=== PATIENT | female | born 1985 | race Caucasian/White ===

== ENCOUNTER → 2020-11-01 09:20 | Outpatient (CLI) | payer BC, SELFPAY ==
[2020-11-01 09:23] LABS: Adenovirus F 40/41, stool Not Detected (NotDetected); Campylobacter Not Detected (NotDetected); Clostridium Difficile A/B, PCR Not Detected (NotDetected); Cryptosporidium Not Detected (NotDetected); Cyclospora Cayetanesis Not Detected (NotDetected); Entamoeba histolytica Not Detected (NotDetected); Enteroaggregative E coli Not Detected (NotDetected); Enteropathogenic E coli Not Detected (NotDetected); Enterotoxigenic E coli Not Detected (NotDetected); Giardia lamblia Not Detected (NotDetected); Norovirus Not Detected (NotDetected); Plesimonas Shigalloides, PCR Not Detected (NotDetected); Rotavirus A Not Detected (NotDetected); Salmonella, PCR Not Detected (NotDetected); Sapovirus Not Detected (NotDetected); Shiga-like toxin E coli Not Detected (NotDetected); Shigella Enterovasive E coli Not Detected (NotDetected); Vibrio Cholerae Not Detected (NotDetected); Vibrio, PCR Not Detected (NotDetected); Yersinia Entercolitica, PCR Not Detected (NotDetected)
[2020-11-01 11:29] LABS: Astrovirus Detected (NotDetected)
== END ==
PROVIDERS: Visit Provider Nurse Practitioner Family
DX: R19.7 Diarrhea, unspecified (principal); A08.32 Astrovirus enteritis
CPT/HCPCS: 87507

== ENCOUNTER → 2022-04-12 07:48 | Outpatient (CLI) | payer BC, SELFPAY ==
--- NOTE | 2022-04-12 07:49 | CA_ITS ---
FINAL REPORT TECHNIQUE: Grayscale, color Doppler and duplex Doppler ultrasound of the kidneys, aorta and renal arteries was performed. Multiple velocities were measured. CLINICAL HISTORY: htn COMPARISON: None FINDINGS: Aorta velocity: 113 cm/sec Right kidney: 11.8 cm. No evidence of hydronephrosis, mass, or stone. Right intrarenal RI: 1.15 Right renal artery velocity: 130 cm/sec. Right RAR (Renal artery-Aortic Ratio): 0.51-0.58 Left Kidney: 12.3 cm. No evidence of hydronephrosis, mass, or stone. Left intrarenal RI: 1.33 Left renal artery velocity: 150 cm/sec. Left RAR (Renal Artery-Aortic Ratio): 0.53-0.57 IMPRESSION: No evidence of significant renal artery stenosis. No evidence of chronic renal disease. CT angiogram or postcontrast MR angiogram would be more sensitive for evaluation of possible renal artery stenosis. Reviewed, Interpreted and Dictated by Irish Brink MD Transcribed by Marii Trujillo Authenticated and [facility]
--- NOTE | 2022-04-12 07:49 | CA_ITS ---
APPROVED REPORT EXAM: Comprehensive 2D, Doppler, and color-flow Echocardiogram Presser Hand: Marlena Rose RVT Ht: 6 ft 1 in Wt: 255lbs BSA: 2.39 BP: 126/84 mmHg Indications: HTN,NEAR SYNCOPE,URI 2D Dimensions LVOT 2.51 cm (M/F) 1.5-2.5 LA Volume 39.00 mL LA Volume Index 16.32 mL/m2 (M/F) 16-34 M-Mode Dimensions RVDd 2.82 cm (0.9-2.6) LA Diam 4.14 cm (1.9-4.0) LVDd 5.74 cm (3.5-5.7) Ao Diam 3.48 cm (2.0-3.7) LVDs 4.47 cm (3.5-5.7) IVSd 0.99 cm (0.6-1.1) PWd 0.87 cm (0.6-1.1) EF (Teich) 44.00% FS 22.10% EDV (Teich) 162.60 mL TAPSE 1.93 (<1.7) ESV (Teich) 91.00 mL LV Diastology E Decel Time 150.00 (160-240 msec) E/A Ratio 0.7 MED E' 5.70 (< 7 cm/sec) E'/MED E' Ratio 10.46 (>14) LAT E' 6.80 (<10 cm/sec) E/LAT E' Ratio 8.76 (>14) Aortic Valve AO Peak GR. 4.00 mmHg Mitral Valve MV E Max Alfonso. 60.00 (40-130 cm/s) MV A Velocity 90.00 (40-130 cm/s) E/A Ratio 0.66 MV Decel. Time 150.00 (160-240 ms) MV PHT 44.00 ms Pulmonary Valve PV Peak Velocity 70.00 (50-150 cm/s) Tricuspid Valve TR P. Velocity 283.00 cm/s RAP Estimate 10.00 mmHg RVSP 42.10 mmHg Left Ventricle Left atrium is mildly enlarged, left ventricle is normal size, estimated ejection fraction is approximately 40 to 45%, left ventricle is globally hypokinetic, grade 1 diastolic dysfunction seen without tissue Doppler evidence of raise left atrial pressure. Right Ventricle Right atrium and right ventricle are mildly enlarged with normal contractility. Aortic Valve Aortic valve is grossly normal there is no aortic stenosis aortic insufficiency. Mitral Valve Mitral valve is grossly normal, there is trace mitral regurgitation. Tricuspid Valve Tricuspid valve grossly normal, there is trace tricuspid regurgitation, tricuspid regurgitation jet velocity is inadequate for calculation of the right ventricular systolic pressure. Pulmonic Valve Pulmonic valve is poorly visualized. Great Vessels Aortic root is normal size. Inferior vena cava is normal size with less than 50% inspiratory collapse. Pericardium No significant pericardial effusion noted. Conclusion 1. Mild biatrial enlargement, normal left ventricular size, estimated ejection fraction 40 to 45% left ventricle is mildly globally hypokinetic. Grade 1 diastolic dysfunction seen without tissue Doppler evidence of raise left atrial pressure. 2. Mildly enlarged right ventricle with normal contractility. 3. Trace mitral and tricuspid regurgitation. 4. No significant pericardial effusion noted. 5. Inferior vena cava is normal size with less than 50% inspiratory collapse. Electronically signed by : Carter Peralta MD 04/13/2022 10:43:00
--- NOTE | 2022-04-12 08:48 | US_ITS ---
FINAL REPORT TECHNIQUE: Ultrasound images of the kidneys were obtained. CLINICAL HISTORY: I16.0 - Hypertensive urgency FINDINGS: US RETROPERITONEAL The right kidney measures 10.5 cm in length. It is normal in echogenicity. There is no hydronephrosis. The left kidney measures 11.6 cm in length. It is normal in echogenicity. There is no hydronephrosis. Incidental note is made of enlarged and fatty infiltrated liver. IMPRESSION: Morphologically normal kidneys. Enlarged fatty liver. Reviewed, Interpreted and Dictated by Irish Brink MD Transcribed by Lisandra Resendiz Authenticated and [facility]
[2022-04-12 09:45] LABS: Basophils # 0.1 K/mm3 (0-0.2); Basophils % 1.1 % (0.1-2.0); Eosinophils # 0.1 K/mm3 (0.0-0.4); Hematocrit 40.4 % (37.0-47.0); Lymphocytes # 1.7 K/mm3 (0.7-4.5); Lymphocytes % 30.9 % (10-50); Mean Corpuscular HGB Conc 32.2 g/dL (31.8-35.4); Mean Corpuscular Hemoglobin 30.5 pg (27.0-31.2); Mean Corpuscular Volume 94.6 fl (81-99); Mean Platelet Volume 7.2 fl (7.4-10.4); Monocytes # 0.4 K/mm3 (0.1-1.0); Monocytes % 7.6 % (1.7-9.3); Neutrophils # 3.3 K/mm3 (1.8-7.8); Neutrophils % 58.4 % (37.0-80.0); Platelet Count 329 K/mm3 (142-424); Red Blood Count 4.27 M/mm3 (4.20-5.40); Red Cell Distribution Width 14.4 % (11.5-17.5); White Blood Count 5.6 K/mm3 (4.8-10.8)
[2022-04-12 10:19] LABS: Alanine Aminotransferase 22 U/L (12-78); Albumin Level 4.1 g/dl (3.5-5.0); Alkaline Phosphatase 58 U/L (38-126); Anion Gap 10.3 mEq/L (5-15); Aspartate Amino Transferase 27 U/L (14-36); Bilirubin,Direct 0.3 mg/dl (0.0-0.4); Bilirubin,Indirect 0.1 mg/dL (0.0-0.9); Bilirubin,Total 0.4 mg/dl (0.2-1.3); Bilirubin,Unconjugated 0.1 mg/dL (0.0-1.1); Blood Urea Nitrogen 14 mg/dl (7-17); Calcium 9.2 mg/dl (8.4-10.2); Carbon Dioxide 27 mmol/L (22.0-30.0); Chloride 105 mmol/L (98-107); Chol/HDL Ratio 4.1 (1-3.5); Cholesterol 187 mg/dl (140-200); Estimated Glomerular Filt Rate 82 ml/min (>60); GFR (African American) 99 ML/MIN (>60); Glucose 92 mg/dl (74-100); HDL Cholesterol 46 mg/dl (40-60); Magnesium 1.8 mg/dl (1.6-2.3); Potassium 4.3 mmoL/L (3.5-5.1); Sodium 138 mmol/L (136-145); Total Protein,Serum 6.5 g/dl (6.3-8.2); Triglycerides 265 mg/dl (30-150); VLDL Cholesterol 53 mg/dL (0-40)
[2022-04-12 11:00] LABS: Free T4 (Free Thyroxine) 0.84 ng/dl (0.78-2.19)
[2022-04-12 11:26] LABS: Thyroid Stimulating Hormone 1.54 uIU/mL (0.465-4.68)
== END ==
LOC: RT 07:49
PROVIDERS: PCP Nurse Practitioner Family; Visit Provider Physician Assistant
DX: R55 Syncope and collapse (principal); I16.0 Hypertensive urgency; R11.0 Nausea
CPT/HCPCS: 76770; 80048; 80061; 80076; 83735; 84439; 84443; 85025; 93306; 93976

== ENCOUNTER → 2022-05-28 07:00 | Outpatient (CLI) | payer BC, SELFPAY ==
[2022-05-28 07:30] VITALS: BMI 32.3
[2022-05-28 07:44] LABS: Urine Pregnancy, HCG Qual. Negative (Negative)
[2022-05-28 08:05] LABS: Chloride 104 mmol/L (98-107); Potassium 4.2 mmoL/L (3.5-5.1); Sodium 136 mmol/L (136-145)
[2022-05-28 08:08] LABS: Alanine Aminotransferase 21 U/L (12-78); Albumin Level 4.2 g/dl (3.5-5.0); Albumin/Globulin Ratio 1.6 (1.1-1.8); Alkaline Phosphatase 58 U/L (38-126); Anion Gap 10.2 mEq/L (5-15); Aspartate Amino Transferase 21 U/L (14-36); Bilirubin,Total 0.4 mg/dl (0.2-1.3); Blood Urea Nitrogen 10 mg/dl (7-17); Carbon Dioxide 26 mmol/L (22.0-30.0); Creatinine Clearance Estimated 174 mL/min (50-200); Estimated Glomerular Filt Rate 82 ml/min (>60); GFR (African American) 99 ML/MIN (>60); Globulin 2.6 g/dL (1.3-3.2); Total Protein,Serum 6.8 g/dl (6.3-8.2)
[2022-05-28 08:09] LABS: Calcium 8.9 mg/dl (8.4-10.2); Glucose 96 mg/dl (74-100)
[2022-05-28 08:45] VITALS: BP 145/94; PULSE 63; RESP 18; O2SAT 95
== END ==
PROVIDERS: PCP Nurse Practitioner Family; Visit Provider Physician Assistant
DX: I42.8 Other cardiomyopathies (principal); I10 Essential (primary) hypertension; E78.1 Pure hyperglyceridemia
CPT/HCPCS: 75574; 80053; 81025; Q9967

== ENCOUNTER 2022-10-13 08:25 | Emergency (ER) | payer BC, SELFPAY ==
[2022-10-13 08:35] VITALS: BP 152/94; PULSE 84; RESP 20; TEMP 36.8; O2SAT 98; BMI 33.6
[2022-10-13 08:57] LABS: UTC Strep Screen (Rapid) Negative (Negative)
[2022-10-13 09:01] VITALS: BP 152/94; PULSE 84; RESP 20; TEMP 36.8; O2SAT 98
--- NOTE | 2022-10-13 09:15 | EXP.UTC ---
Discharge Plan Disposition Patient Disposition: Home, Self-Care Condition: Good Prescriptions Prescriptions: New azithromycin [azithromycin] 250 mg tablet 250 mg PO DIRECTED Qty: 6 0RF Rx Instructions: Take two (2) tablets on day #1, then one (1) tablet day #2 thru #5 No Action Ozempic 0.25 mg or 0.5 mg (2 mg/3 mL) pen injector 0.25 mg SQ WEEKLY Qty: 3 2RF Rx Instructions: for 4 weeks escitalopram oxalate [Lexapro] 20 mg tablet 20 mg PO DAILY Cryselle (28) 0.3-30 mg-mcg tablet 1 tab PO DAILY promethazine 25 mg tablet 25 mg PO Q4-6H PRN (Reason: nausea and vomiting) Qty: 30 0RF metoprolol succinate 100 mg tablet extended release 24 hr 100 mg PO DAILY losartan 100 mg tablet 100 mg PO DAILY Referrals Follow up/Referrals: Latesha Colon APRN [Primary Care Provider] - See instructions Activity Restrictions/Add. Instructions Additional Instructions/Restrictions: Start antibiotics today be sure to take it as ordered with the full length of time although you should start feeling better in 24-48 hours. Change toothbrush and toothpaste 24-48 hours after starting antibiotics Tylenol or Motrin as needed for fever or pain Encourage fluids, water, Gatorade, Powerade, try cold fluids, popsicles, ice cream will make it feel better You are contagious for 24 hours. Avoid kissing anyone, no eating or drinking after anyone. You are contagious. Follow-up the ER for new or worsening symptoms or no noticeable improvement over the next 24-48 hours. Follow-up with PCP this week if needed Clinical Impressions Clinical Impression: Strep sore throat Instructions Patient Instructions: DI for Strep Throat Discharge ED Provider: Lidia ([facility])Jonathan [facility] HPI General Stated complaint: sore throat, cough, bilateral ear pain Mode of Arrival: Ambulatory Source of Information: Patient Limitations: No Limitations Time Seen by Provider: 10/13/22 09:16 Description of Symptoms (Recalled from Triage Doc. by RN): PATIENT C/O EAR ACHE, DRY COUGH, AND SORE THROAT THAT STARTED SATURDAY HEENT Symptoms (Recalled from RN notes): Yes Resp Symptoms (Recalled from RN notes): Yes Skin Symptoms (Recalled from RN notes): No MS Symptoms (Recalled from RN notes): No Functional Status (Recalled from RN notes): WNL History of Present Illness Provider Complaint: 37 yr old female presents for sore throat, dry cough and left ear pain Related Data Home Medications Medication Instructions Recorded Confirmed escitalopram oxalate 20 mg tablet 20 mg PO DAILY mood 03/15/22 04/24/22 (Lexapro) norgestrel 0.3 mg-ethinyl 1 tab PO DAILY . 03/15/22 04/24/22 estradiol 30 mcg tablet (Cryselle (28)) losartan 100 mg tablet 100 mg PO DAILY bp 05/28/22 metoprolol succinate 100 mg 100 mg PO DAILY bp 05/28/22 tablet,extended release 24 hr Previous Rx's Medication Instructions Recorded promethazine 25 mg tablet 25 mg PO Q4-6H PRN nausea and 03/15/22 vomiting #30 tabs semaglutide 0.25 mg or 0.5 mg (2 0.25 mg (0.368 mL) SQ WEEKLY #3 mL 04/24/22 mg/3 mL) subcutaneous pen injector (Ozempic) azithromycin 250 mg tablet 250 mg PO DIRECTED #6 tabs 10/13/22 Allergies Allergy/AdvReac Type Severity Reaction Status Date / Time morphine AdvReac Intermediate Verified 04/24/22 14:15 Worker's Comp Is this a Worker's Comp case?: No [facility] Disclaimer: The information contained in this section may have been updated after the patient was seen, as this information can be updated by other users. 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
== END 2022-10-13 09:28 | disposition home or self-care (01) ==
PROVIDERS: Emergency Provider Nurse Practitioner Family; PCP Nurse Practitioner Family
DX: J02.0 Streptococcal pharyngitis (principal); H92.02 Otalgia, left ear; I42.9 Cardiomyopathy, unspecified; E78.1 Pure hyperglyceridemia; I10 Essential (primary) hypertension
CPT/HCPCS: 87880; 99204; 99212; G0463

== ENCOUNTER 2023-04-12 13:17 | Outpatient (CLI) | payer BC, SELFPAY ==
[2023-04-12 13:33] LABS: Basophils # 0.1 K/mm3 (0-0.2); Eosinophils # 0.3 K/mm3 (0.0-0.4); Eosinophils % 4.6 % (0.1-12.0); Hemoglobin 14.7 g/dL (12.2-16.2); Lymphocytes # 2.3 K/mm3 (0.7-4.5); Lymphocytes % 35.8 % (10-50); Mean Corpuscular HGB Conc 34.2 g/dL (31.8-35.4); Mean Corpuscular Hemoglobin 31.1 pg (27.0-31.2); Mean Corpuscular Volume 90.9 fl (81-99); Mean Platelet Volume 6.9 fl (7.4-10.4); Monocytes # 0.5 K/mm3 (0.1-1.0); Monocytes % 6.9 % (1.7-9.3); Neutrophils # 3.4 K/mm3 (1.8-7.8); Neutrophils % 51.7 % (37.0-80.0); Platelet Count 366 K/mm3 (142-424); Red Blood Count 4.73 M/mm3 (4.20-5.40); Red Cell Distribution Width 13.1 % (11.5-17.5); White Blood Count 6.5 K/mm3 (4.8-10.8)
[2023-04-12 14:09] LABS: Alanine Aminotransferase 35 U/L (12-78); Albumin Level 4.6 g/dl (3.5-5.0); Alkaline Phosphatase 56 U/L (38-126); Anion Gap 11.9 mEq/L (5-15); Aspartate Amino Transferase 27 U/L (14-36); Bilirubin,Direct 0.1 mg/dl (0.0-0.4); Bilirubin,Indirect 0.4 mg/dL (0.0-0.9); Bilirubin,Total 0.5 mg/dl (0.2-1.3); Bilirubin,Unconjugated 0.4 mg/dL (0.0-1.1); Blood Urea Nitrogen 14 mg/dl (7-17); Calcium 10.1 mg/dl (8.4-10.2); Carbon Dioxide 27 mmol/L (22.0-30.0); Chloride 106 mmol/L (98-107); Chol/HDL Ratio 7.8 (1-3.5); Cholesterol 256 mg/dl (140-200); Estimated Glomerular Filt Rate 63 ml/min (>60); GFR (African American) 76 ML/MIN (>60); Glucose 94 mg/dl (74-100); HDL Cholesterol 33 mg/dl (40-60); Potassium 4.9 mmoL/L (3.5-5.1); Sodium 140 mmol/L (136-145); Total Protein,Serum 7.1 g/dl (6.3-8.2); Triglycerides 320 mg/dl (30-150); VLDL Cholesterol 64 mg/dL (0-40)
[2023-04-12 14:20] LABS: Direct LDL Cholesterol 150.86 mg/dL (100-129)
[2023-04-12 14:25] LABS: Free T4 (Free Thyroxine) 0.91 ng/dl (0.78-2.19)
[2023-04-12 14:35] LABS: Hemoglobin A1C 5.2 % (4.0-6.0)
== END 2023-04-12 23:59 ==
LOC: LAB 13:18
PROVIDERS: PCP Nurse Practitioner Family; Visit Provider Physician Assistant
DX: R06.00 Dyspnea, unspecified (principal); I42.8 Other cardiomyopathies; I11.9 Hypertensive heart disease without heart failure; I51.9 Heart disease, unspecified; E78.1 Pure hyperglyceridemia; K21.9 Gastro-esophageal reflux disease without esophagitis; E11.9 Type 2 diabetes mellitus without complications; Z79.85 Long-term (current) use of injectable non-insulin antidiabetic drugs
CPT/HCPCS: 36415; 80048; 80061; 80076; 83036; 84439; 84443; 85025

== ENCOUNTER 2023-04-25 14:52 | Outpatient (CLI) | payer BC, SELFPAY ==
--- NOTE | 2023-04-25 14:53 | CA_ITS ---
APPROVED REPORT EXAM: Comprehensive 2D, Doppler, and color-flow Echocardiogram Assembler Installer General: Marlen Asencio, RCS, RVS Ht: 6 ft 1 in Wt: 250lbs BSA: 2.37 BP: 132/74 mmHg Indications: CM, LV dysfunction, HTN 2D Dimensions IVSd 0.00 cm LVEF (Visual) 34.90 % PWd 4.98 cm LA Volume 46.00 mL LVDd 1.22 cm LA Volume Index 19.40 mL/m2 (M/F) 16-34 LVDs 3.37 cm EF AP4 44.70 % Aortic Root 3.77 cm GL Strain -18.1 % Left Atrium 3.21 cm RVID Base (AP4) 4.07 cm (M/F) 2.5-4.1 LVOT 2.32 cm (M/F) 1.5-2.5 M-Mode Dimensions RVDd 2.67 cm (0.9-2.6) LVDd 1.22 cm (3.5-5.7) Ao Diam 3.09 cm (2.0-3.7) LVDs 3.53 cm (3.5-5.7) IVSd 1.18 cm (0.6-1.1) PWd 1.03 cm (0.6-1.1) EF (Teich) 50.50% EPSs 1.26 cm FS 21.50% EDV (Teich) 104.90 mL ESV (Teich) 51.90 mL LV Diastology E Decel Time 353 (160-240 msec) E/A Ratio 1.19 MED E' 14.5 (>= 7 cm/sec) MED A' 8.40 cm/s E'/MED E' Ratio 3.33 (<= 14) LAT E' 10.8 (>= 10 cm/sec) LAT A' 8.60 cm/s E/LAT E' Ratio 4.47 (<= 14) Aortic Valve LVOT Max 72.0 (70-110 cm/s) DILLON Index 1.16 cm2/m2 LVOT VTI 12.68 cm AoV Peak Alfonso. 116.0 (50-130 cm/s) AO Mean GR. 2.70 (<5 mmHg) AO VTI 19.4 (18-25 cm) DILLON (VTI) 2.76 (2.5-4.5 cm2) Mitral Valve MV E Max Alfonso. 48.0 (40-130 cm/s) MV A Velocity 41.0 (40-130 cm/s) E/A Ratio 1.19 MV Decel. Time 353 (160-240 ms) Pulmonary Valve NV End VMAX 185.0 cm/s Left Ventricle The left ventricle is normal size. The left ventricular systolic function is mildly reduced. There is normal left ventricular wall thickness. There is mild global hypokinesis present. The left ventricular diastolic function is normal. LVEF is 45%. Right Ventricle The right ventricle is mildly dilated. Right ventricle is mildly hypokinetic. Atria The left atrium size is normal. The right atrium size is normal. There is no Doppler evidence of interatrial shunt. Aortic Valve The aortic valve opens well. There is no aortic valvular stenosis. Trace aortic regurgitation. Mitral Valve The mitral valve is normal in structure. No evidence of mitral valve stenosis. Trace mitral regurgitation. Tricuspid Valve The tricuspid valve leaflets are thin and pliable. Trace tricuspid regurgitation. There is insufficient TR jet to estimate RVSP. Pulmonic Valve The pulmonary valve is normal in structure. Trace pulmonic regurgitation. Great Vessels The aortic root is normal in size. The ascending aorta is normal in size. IVC is normal in size and collapses >50% with inspiration. Pericardium There is no pericardial effusion. Other Information Study Quality: Fair Conclusion Mildly reduced LV systolic function (LVEF 45%). Mild RV dilation with mildly reduced RV function. No significant valvular stenosis or regurgitation. Electronically signed by : Michelle Petersen MD 04/30/2023 22:30:32
== END 2023-04-25 23:59 ==
LOC: RT 14:53
PROVIDERS: PCP Nurse Practitioner Family; Visit Provider Physician Assistant
DX: I42.8 Other cardiomyopathies; I11.9 Hypertensive heart disease without heart failure
CPT/HCPCS: 93306

== ENCOUNTER 2023-06-04 15:06 | Outpatient (CLI) | payer BC, SELFPAY ==
[2023-06-04 15:30] LABS: Blood Urea Nitrogen 17 mg/dl (7-17); Estimated Glomerular Filt Rate 71 ml/min (>60); GFR (African American) 86 ML/MIN (>60)
== END 2023-06-04 23:59 ==
PROVIDERS: PCP Nurse Practitioner Family; Visit Provider Internal Medicine
DX: Z01.812 Encounter for preprocedural laboratory examination (principal)
CPT/HCPCS: 36415; 82565; 84520

== ENCOUNTER 2023-06-05 09:40 | Outpatient (CLI) | payer BC, SELFPAY ==
--- NOTE | 2023-06-05 09:41 | MR_ITS ---
APPROVED REPORT Manager Clinical Informatics: CLINICAL INDICATION Cardiomyopathy evaluation TECHNIQUE Image Acquisition: Cardiac magnetic resonance (CMR) was performed on Siemens Espree MRI 1.5T scanner. Software platform sequences were performed using the Siemens Workana MR B19 platform. A set of three-plane, low-resolution, large [id number] localizers were initially acquired. Then axial, coronal, sagittal TrueFISP, as well as axial HASTE images, were obtained. These were followed by gated TrueFISP breathold cinematic sequences obtained in the short axis with 8 mm slices and 2 mm gaps, 2-chamber (vertical long axis), 3-chamber, 4-chamber (horizontal long axis). A bolus of contrast was injected intravenously with first-pass sequences obtained in the short axis and four-chamber planes. After approximately 10 minutes, a TI professor of astronomy sequence was performed to determine the optimal TI time. Using the optimized TI time, delayed contrast enhancement segmented inversion???recovery TurboFLASH sequences were obtained in the short axis, 2-chamber, 3-chamber, and 4-chamber projections. 2D-velocity phase mapping was performed. Functional parameters were calculated by offline analysis on an independent workstation ([employer], [email or web address]). Contrast: ProHance??? (Gadoteridol) FINDINGS MORPHOLOGY AND FUNCTION Left ventricle: The left ventricle is normal in size. The indexed left ventricular end-diastolic volume (LVEDVi) is 67 ml/m2 (reference range 57-105 ml/m2 in males, 56-96 ml/m2 in females). Low-normal left ventricular systolic function is present. There is normal left ventricular wall thickness. There are no regional wall motion abnormalities noted. LVEF is calculated at 51.5% (reference range 57-77%). Right ventricle: The right ventricle is normal in size. The indexed right ventricular end-diastolic volume (RVEDVi) is 83 ml/m2 (reference range 61-121 ml/m2 in males, 48-112 ml/m2 in females). There is mild reduction in right ventricular systolic function. RVEF is calculated at 41.7% (reference range 52-72% in males, 51-71% in females). Atria: The left atrium is normal in size. The maximum indexed left atrial volume is 27 ml/m2 (reference range 26-52 ml/m2 in males, 27-53 ml/m2 in females). The right atrium is normal in size. The maximum indexed right atrial volume is 18 ml/m2 (reference range 18-90 ml/m2). Aorta: The diameter of the aortic annulus is normal, measuring 27 mm (coronal view reference range 21-30 mm in males, 19-27 mm in females). The diameter of the aortic sinus is normal, measuring 35 mm (coronal view reference range 25-42 mm in males, 24-36 mm in females). The diameter of the sinotubular junction is normal, measuring 28 mm (coronal view reference range 18-32 mm in males, 18-28 mm in females). The diameters of the ascending and descending thoracic aorta are normal. Main pulmonary artery: The main pulmonary artery diameter is normal. Pericardium: The pericardial thickness is normal. The pericardial thickness measures 1.8 cm (normal < 4.0 cm). There is no pericardial effusion. VALVES The valvular morphologies in the visualized sequences appear normal. There is no significant valvular stenosis or regurgitation of the mitral, aortic, tricuspid, or pulmonic valve noted visually. Systolic anterior motion of the mitral valve is not visualized. Ratio of pulmonary to systemic flow, Qp:Qs ratio - 1.0 (normal < or = 1.2), demonstrating no evidence of hemodynamically significant shunt. TISSUE CHARACTERIZATION Resting Perfusion: Normal myocardial blood flow at rest. No evidence of resting hypoperfusion. Myocardial Fibrosis and/or edema: Normal gadolinium kinetics are present. No evidence of late gadolinium enhancement is noted, consistent with absence of myocardial scarring, infarction, or necrosis. T2-weighted imaging demonstrates no evidence of myocardial edema or inflammation. OTHER No other significant findings are noted. However, this exam is focused on the cardiac structure and function. IMPRESSION Normal LV size with low-normal LV systolic function. LVEDVi= 67 ml/m2 and LVEF= 51.5%. Normal RV size with mild reduction in RV systolic function. RVEDVi= 83 ml/m2 and RVEF= 41.7%. No atrial enlargement. No CMR evidence of myocardial scarring, infarction, or necrosis. No evidence of myocardial edema or inflammation. Perfusion analysis demonstrates normal blood flow at rest with no evidence of resting hypoperfusion. Ratio of pulmonary to systemic flow, Qp:Qs ratio normal, demonstrating no evidence of hemodynamically significant shunt. Overall, this CMR demonstrates normal LV size and systolic function. The LV myocardium is viable with no evidence of fibrosis or scarring and no evidence of LV cardiomyopathy. There is mild RV dysfunction present. COMPARISON None CRITICAL RESULT None COMMUNICATION Per this written report The findings of this cardiac MR were reviewed, reported, and signed by Yunior Petersen MD (Care Director Rn). Conclusion Electronically signed by : Michelle Petersen MD 06/07/2023 01:30:20
[2023-06-05] MEDS: GADOTERIDOL INJ 17ML SYRINGE 23 ML IV (11:14)
[2023-06-05] MEDS: 0.9 % SODIUM CHLORIDE 50 ML VIAL 20 ML IV (11:14)
[2023-06-05] MEDS: SODIUM CHLORIDE 0.9% 10ML SYR (RAD ONLY) 10 ML IV (11:14)
== END 2023-06-05 23:59 ==
LOC: RAD 09:41
PROVIDERS: PCP Nurse Practitioner Family; Visit Provider Internal Medicine
DX: I42.8 Other cardiomyopathies (principal)
CPT/HCPCS: 75561; A9576

== ENCOUNTER 2023-07-08 22:12 | Outpatient (CLI) | payer BC, SELFPAY | END 2023-07-08 23:59 | disposition home or self-care (01) | LOC: LAB.DROPOF 22:13 | PROVIDERS: PCP Nurse Practitioner Family; Visit Provider Nurse Practitioner Family | DX: B96.89 Other specified bacterial agents as the cause of diseases classified elsewhere (principal) | CPT/HCPCS: 87070; 87205 ==

== ENCOUNTER 2023-10-08 15:53 | Outpatient (CLI) | payer BC, SELFPAY ==
[2023-10-08 19:37] LABS: Albumin Level 4.1 g/dl (3.5-5.0); Chloride 105 mmol/L (98-107); Sodium 135 mmol/L (136-145)
[2023-10-08 19:38] LABS: Potassium 4.5 mmoL/L (3.5-5.1)
[2023-10-08 19:40] LABS: Alanine Aminotransferase 20 U/L (12-78); Albumin/Globulin Ratio 1.7 (1.1-1.8); Alkaline Phosphatase 50 U/L (38-126); Anion Gap 9.5 mEq/L (5-15); Aspartate Amino Transferase 22 U/L (14-36); Bilirubin,Total 0.6 mg/dl (0.2-1.3); Blood Urea Nitrogen 12 mg/dl (7-17); Carbon Dioxide 25 mmol/L (22.0-30.0); Estimated Glomerular Filt Rate 56 ml/min (>60); GFR (African American) 68 ML/MIN (>60); Globulin 2.4 g/dL (1.3-3.2); Total Protein,Serum 6.5 g/dl (6.3-8.2)
[2023-10-08 19:41] LABS: Calcium 9.1 mg/dl (8.4-10.2); Glucose 76 mg/dl (74-100)
[2023-10-08 19:46] LABS: Hemoglobin A1C 4.9 % (4.0-6.0)
== END 2023-10-08 23:59 | disposition home or self-care (01) ==
LOC: LAB.DROPOF 10-09 13:20
PROVIDERS: PCP Nurse Practitioner Family; Visit Provider Nurse Practitioner Family
DX: E78.5 Hyperlipidemia, unspecified (principal); E66.9 Obesity, unspecified; I42.9 Cardiomyopathy, unspecified; Z68.29 Body mass index [BMI] 29.0-29.9, adult
CPT/HCPCS: 80053; 83036

== ENCOUNTER 2023-12-31 09:22 | Outpatient (CLI) | payer BC, SELFPAY ==
--- NOTE | 2023-12-31 09:24 | CA_ITS ---
APPROVED REPORT EXAM: Limited 2D Echocardiogram Animal Damage Control Agent: Marlen Asencio, RCS, RVS Ht: 6 ft 1 in Wt: 217lbs BSA: 2.23 BP: 131/75 mmHg Indications: HTN, REDUCED EF 45% -03/2023 2D Dimensions LVEF (Visual) 58.00 % M-Mode Dimensions RVDd 2.97 cm (0.9-2.6) LVDd 5.03 cm (3.5-5.7) LVDs 3.62 cm (3.5-5.7) IVSd 1.07 cm (0.6-1.1) PWd 1.14 cm (0.6-1.1) EF (Teich) 55.00% FS 29.00% EDV (Teich) 119.90 mL ESV (Teich) 55.20 mL Other Information Study Quality: Adequate Conclusion This is a limited TTE to evaluate for biventricular systolic function. Limited windows were obtained. The left ventricle is normal in size. There is normal LV wall thickness. There is normal global LV systolic function. No regional wall motion abnormalities are noted. LVEF is 50-55%. The right ventricle is normal in size and systolic function. Compared to prior study from 03/2023, the LV and RV systolic functions have improved and are now both normal. Electronically signed by : Michelle Petersen MD 01/02/2024 00:33:56
[2023-12-31 10:40] LABS: Basophils # 0.1 K/mm3 (0-0.2); Basophils % 0.8 % (0.1-2.0); Eosinophils # 0.1 K/mm3 (0.0-0.4); Eosinophils % 1.6 % (0.1-12.0); Hematocrit 43.6 % (37.0-47.0); Hemoglobin 14.5 g/dL (12.2-16.2); Lymphocytes % 22.2 % (10-50); Mean Corpuscular HGB Conc 33.3 g/dL (31.8-35.4); Mean Corpuscular Hemoglobin 31.3 pg (27.0-31.2); Mean Platelet Volume 7.2 fl (7.4-10.4); Monocytes # 0.5 K/mm3 (0.1-1.0); Monocytes % 5.7 % (1.7-9.3); Neutrophils # 6.3 K/mm3 (1.8-7.8); Neutrophils % 69.8 % (37.0-80.0); Platelet Count 446 K/mm3 (142-424); Red Blood Count 4.64 M/mm3 (4.20-5.40); Red Cell Distribution Width 13.7 % (11.5-17.5); White Blood Count 9.1 K/mm3 (4.8-10.8)
[2023-12-31 11:03] LABS: Alanine Aminotransferase 14 U/L (12-78); Albumin Level 4.4 g/dl (3.5-5.0); Alkaline Phosphatase 41 U/L (38-126); Anion Gap 14.2 mEq/L (5-15); Aspartate Amino Transferase 19 U/L (14-36); Bilirubin,Direct 0.2 mg/dl (0.0-0.4); Bilirubin,Indirect 0.6 mg/dL (0.0-0.9); Bilirubin,Total 0.8 mg/dl (0.2-1.3); Bilirubin,Unconjugated 0.6 mg/dL (0.0-1.1); Blood Urea Nitrogen 12 mg/dl (7-17); Calcium 9.4 mg/dl (8.4-10.2); Carbon Dioxide 22 mmol/L (22.0-30.0); Chloride 107 mmol/L (98-107); Chol/HDL Ratio 3.8 (1-3.5); Cholesterol 187 mg/dl (140-200); Estimated Glomerular Filt Rate 71 ml/min (>60); GFR (African American) 86 ML/MIN (>60); Glucose 75 mg/dl (74-100); HDL Cholesterol 49 mg/dl (40-60); Hemoglobin A1C 4.7 % (4.0-6.0); Magnesium 1.8 mg/dl (1.6-2.3); Potassium 4.2 mmoL/L (3.5-5.1); Sodium 139 mmol/L (136-145); Total Protein,Serum 6.7 g/dl (6.3-8.2); Triglycerides 174 mg/dl (30-150); VLDL Cholesterol 35 mg/dL (0-40)
[2023-12-31 11:14] LABS: Direct LDL Cholesterol 112.48 mg/dL (100-129)
[2023-12-31 11:18] LABS: Free T4 (Free Thyroxine) 1.04 ng/dl (0.78-2.19)
[2023-12-31 11:34] LABS: Thyroid Stimulating Hormone 1.55 uIU/mL (0.465-4.68)
== END 2023-12-31 23:59 | disposition home or self-care (01) ==
LOC: RT 09:22
PROVIDERS: PCP Nurse Practitioner Family; Visit Provider Physician Assistant
DX: I42.8 Other cardiomyopathies (principal); I11.9 Hypertensive heart disease without heart failure; E78.1 Pure hyperglyceridemia
CPT/HCPCS: 36415; 80048; 80061; 80076; 83036; 83735; 84439; 84443; 85025; 93308

== ENCOUNTER 2024-02-27 10:17 | Emergency (ER) | payer BC, SELFPAY ==
[2024-02-27 10:26] VITALS: BP 135/93; PULSE 115; RESP 20; TEMP 36.6; O2SAT 99; BMI 27.7
[2024-02-27] MEDS: ONDANSETRON 4MG ODT 4 MG SL (10:30)
--- NOTE | 2024-02-27 10:40 | EXP.UTC ---
Discharge Plan Disposition Patient Disposition: Home, Self-Care Condition: Good Prescriptions Prescriptions: New ondansetron 4 mg Tablet,Disintegrating 4 mg PO Q8H PRN (Reason: Nausea) Qty: 12 0RF No Action tirzepatide (weight loss) 15 mg/0.5 mL pen injector 15 mg SQ WEEKLY Qty: 2 6RF amoxicillin-pot clavulanate 875-125 mg tablet 1 tab PO BID 10 Days Qty: 20 0RF escitalopram oxalate [Lexapro] 20 mg tablet 20 mg PO DAILY Annselle (28) 0.3-30 mg-mcg tablet 1 tab PO DAILY losartan 100 mg tablet 100 mg PO DAILY 90 Days Qty: 90 3RF Referrals Follow up/Referrals: Latesha Colon APRN [Primary Care Provider] - See instructions Activity Restrictions/Add. Instructions Additional Instructions/Restrictions: Drink plenty of fluids. Take tylenol or ibuprofen for pain or fever. Take the zofran as directed for nausea/vomiting. Follow up with your regular doctor. GO TO THE ER FOR ANY WORSENING SYMPTOMS Clinical Impressions Clinical Impression: Acute viral syndrome Instructions Patient Instructions: DI for Viral Syndrome, Ondansetron Print Language Print Language: Kyrgyz Discharge ED Provider: Rodo Rodas [facility] [place] H[place] General Stated complaint: dizziness, vomiting, chills Mode of Arrival: Ambulatory Source of Information: Patient Time Seen by Provider: 02/27/24 10:36 Description of Symptoms (Recalled from Triage Doc. by RN): TOOK WEIGHT LOSS DRUG AND IS EXTREMLY NAUSEAOUS HEENT Symptoms (Recalled from RN notes): No Resp Symptoms (Recalled from RN notes): No Skin Symptoms (Recalled from RN notes): No MS Symptoms (Recalled from RN notes): No Functional Status (Recalled from RN notes): WNL History of Present Illness Provider Complaint: She states that since yesterday she has had nausea/vomiting/diarrhea. She took her Wegovy injection yesterday before her symptoms started. She denies any abdominal pain. Related Data Home Medications ?Medication ?Instructions ?Recorded ?Confirmed escitalopram oxalate 20 mg tablet 20 mg PO DAILY mood 03/15/22 02/27/24 (Lexapro) norgestrel 0.3 mg-ethinyl 1 tab PO DAILY . 03/15/22 02/27/24 estradiol 30 mcg tablet (Cryselle (28)) Previous Rx's ?Medication ?Instructions ?Recorded losartan 100 mg tablet 100 mg PO DAILY bp 90 days #90 tabs 06/13/23 tirzepatide (weight loss) 15 15 mg (0.5 mL) SQ WEEKLY #2 mL 01/14/24 mg/0.5 mL subcutaneous pen injector amoxicillin 875 mg-potassium 1 tab PO BID 10 days #20 tabs 02/24/24 clavulanate 125 mg tablet ondansetron 4 mg disintegrating 4 mg PO Q8H PRN Nausea #12 tabs 02/27/24 tablet Allergies Allergy/AdvReac Type Severity Reaction Status Date / Time morphine AdvReac Intermediate Verified 02/24/24 10:38 Worker's Comp Is this a Worker's Comp case?: No [facility] Disclaimer: The information contained in this section may have been updated after the patient was seen, as this information can be updated by other users. Medical History Cardiomyopathy LV dysfunction HTN (hypertension) Hypertriglyceridemia Nausea Near syncope Hypertensive urgency Surgical History [place] teeth extracted History of appendectomy Family History Other Family history of cancer Family history of diabetes mellitus Family history of heart disease Social History Smoking Status: Never smoker alcohol intake: never current occupational status: employed Travel in the last 8 weeks: None Have you lived/traveled outside US in past 30 days?: No Contact w/someone who lives/traveled outside US past 30 days?: No Exposure to someone with infectious disease in past 14 days?: No Do you have a fever (greater than 100.4 F or 38 C)?: No Have you tested positive for COVID-19: No Exposed to someone with COVID-19 in past 14 days?: No Do you have a sore throat?: No Do you have a cough?: No Do you have any weakness?: No Do you have any diarrhea?: No Are you experiencing any unusual bleeding?: No Do you have any muscle aches/pain?: No Do you have any abdominal pain?: No Are you experiencing loss of taste or smell?: No ROS Obtained: Yes All systems reviewed & no additional complaints except as documented Constitutional Constitutional: Denies chills and Denies fever(s) Eyes Eyes: Denies eye discharge ENT Ears, Nose, Mouth, and Throat: Denies dizziness, Denies otalgia and Denies sore throat Cardiovascular Cardiovascular: Denies chest pain Respiratory Respiratory: Denies shortness of breath, Denies chest congestion, Denies cough, Denies stridor and Denies wheezing Gastrointestinal Gastrointestingal: Reports as per HPI, cramping, diarrhea, nausea and vomiting; Denies abdominal pain or constipation Musculoskeletal Musculoskeletal: Reports system reviewed and no additional complaints, except as documented and Denies arthralgias Integumentary/Breasts Skin/Breast: Denies rash Neurologic Neurologic: Denies dizziness and Denies paresthesias Allergic/Immunologic Allergic/Immunologic: Denies wheezing Physical Exam General General appearance: alert and in no apparent distress Head Head exam: atraumatic and normocephalic Eye Eye exam: Present normal appearance, PERRL and EOMI ENT ENT exam: Present normal exam, normal oropharynx, mucous membranes moist, TM's normal bilaterally and normal external ear exam Neck Neck exam: Present normal inspection, full ROM and trachea midline; Absent tenderness, meningismus or lymphadenopathy Chest Chest inspection: Present normal inspection and symmetric chest wall rise; Absent tenderness, rash or abscess Respiratory Respiratory exam: Present normal lung sounds bilaterally; Absent respiratory distress, wheezes or stridor Cardiovascular Cardiovascular exam: Present regular rate and normal rhythm; Absent irregular rhythm, systolic murmur, diastolic murmur or JVD Abdominal Exam Abdominal exam: Present soft and hyperactive bowel sounds; Absent distention, tenderness, guarding, rebound, rigidity, psoas sign, obturator sign, heel tap sign, Jacobo's sign, Rovsing's sign or tenderness at McBurney's Point Extremities Exam Extremities exam: Present normal inspection and full ROM; Absent tenderness Back Exam Back exam: Present normal inspection and full ROM; Absent tenderness, CVA tenderness (R) or CVA tenderness (L) Neurological Exam Neurological exam: Present alert, oriented X3 and CN II-XII intact Psychiatric Psychiatric exam: Present normal affect and normal mood Skin Skin exam: Present warm, dry, intact and normal color Lymphatic Lymphatic Findings: no adenopathy Medical Decision Making Medical Records Medical records reviewed: No I reviewed the patient's medical records. Screening: Per USPSTF and CDC recommendations, given the prevalence of disease in our region, it is our hospital?s policy to screen for HIV and viral Hepatitis for all patients aged 18 and over and those with ongoing risk factors. Parish Inquiry Pt receiving controlled substance: No Vital Signs: 02/27/24 10:26 Temperature 97.8 F Temperature Source Oral Pulse Rate [Left Radial] 115 H Respiratory Rate 20 Blood Pressure [Left Arm] 135/93 H Blood Pressure Mean [Left Arm] 107 02 Sat by Pulse Oximetry 99 Lab Data Lab results reviewed: Yes I reviewed the patient's lab results. 02/27/24 11:07 02/27/24 11:07 Orders (Tests/Meds): ED MEDICATIONS Discontinued Medications Generic Name Dose Route Start Last Admin Trade Name Freq PRN Reason Stop Dose Admin Ondansetron HCl 4 mg 02/27/24 10:28 02/27/24 10:30 Ondansetron 4mg Odt SL 02/27/24 10:29 4 mg ONCE ONE Administration
[2024-02-27] MEDS: 0.9 % SODIUM CHLORIDE 1000ML 1,000 ML 999 ML IV (11:20)
[2024-02-27 11:23] LABS: Basophils % 0.4 % (0.1-2.0); Eosinophils % 0.8 % (0.1-12.0); Hematocrit 43.4 % (37.0-47.0); Hemoglobin 14.9 g/dL (12.2-16.2); Lymphocytes # 1.9 K/mm3 (0.7-4.5); Lymphocytes % 40.3 % (10-50); Mean Corpuscular HGB Conc 34.3 g/dL (31.8-35.4); Mean Corpuscular Volume 90.4 fl (81-99); Mean Platelet Volume 8.5 fl (7.4-10.4); Monocytes # 0.5 K/mm3 (0.1-1.0); Monocytes % 10.3 % (1.7-9.3); Neutrophils # 2.3 K/mm3 (1.8-7.8); Platelet Count 304 K/mm3 (142-424); Red Cell Distribution Width 12.3 % (11.5-17.5); White Blood Count 4.8 K/mm3 (4.8-10.8)
[2024-02-27 11:52] LABS: Blood Urea Nitrogen 11 mg/dl (7-17); Carbon Dioxide 24 mmol/L (22.0-30.0); Chloride 100 mmol/L (98-107); Creatinine Clearance Estimated 130 mL/min (50-200); Estimated Glomerular Filt Rate 71 ml/min (>60); GFR (African American) 86 ML/MIN (>60); Glucose 85 mg/dl (74-100); Sodium 134 mmol/L (136-145)
[2024-02-27 12:29] VITALS: BP 135/93; PULSE 115; RESP 20; TEMP 36.6
== END 2024-02-27 12:36 | disposition home or self-care (01) ==
PROVIDERS: Emergency Provider Nurse Practitioner Family; PCP Nurse Practitioner Family
DX: B34.9 Viral infection, unspecified (principal)
CPT/HCPCS: 80048; 85025; 96360; 99213; G0381; J7030; Q0162

== ENCOUNTER 2025-02-23 10:15 | Outpatient (CLI) | payer BC, SELFPAY ==
--- OUTSIDE RECORDS SUMMARY | 2024-12-29 16:15 | XMS_ITS | Encounter Summary ---
Author Organization [facility] Address [address] [place] [address] Care Team Providers Care Design Draftsman Name Role Phone Latesha Colon APRN Primary Care Provider Reason for Visit * Reason Comments Gynecologic Exam Annual Encounter Details Date Type Department Care Team (Late st Contact Info) Description 12/29/2024 4:15 PM EST Office Visit [facility] [address] [facility] [address] [place] [id number] Michelle Osuna APRN [address] [facility] [address] [place] [address] Women's annual routine gynecological examination (Primary Dx); Encounter for surveillance of contraceptive pills; Obesity (BMI 30-39.9) Social History Tobacco Use Types Packs/Day Years Used Date Smoking Tobacco: Never Smokeless Tobacco: Never Tobacco Cessation:Counseling Given: Not Answered Alcohol Use Standard Drinks/Week Comments Yes 0 (1 standard drink = 0.6 oz pur e alcohol) Socially [place] Depression Scale Answer Date Recorded [place] Depression Scale Total 1 08/31/2019 The thought of harming myself has occurred to me . Never 08/31/2019 Comments No Sex and Gender Information Value Date Recorded Sex Assigned at Female 12/23/2024 11:14 AM EDT Legal Sex Female 10:19 AM EDT Gender Identity Not on file Sexual Orientation Straight 12/23/2024 11 :14 AM EDT documented as of this encounter Last Filed Vital Signs Vital Sign Reading Time Taken Comments Blood Pressure 136/86 12/29/2024 4:26 PM EST Pulse - - Temperature - - Respiratory Rate - - Oxygen Saturation - - Inhaled Oxygen Concentration - - Weight 116 kg (256 lb 9.6 oz) 12/29/2024 4:26 PM EST Height 185.4 cm (6' 1 ) 12/29/2024 4:26 PM EST Body Mass Index 33.85 12/29/2024 4:26 PM EST documented in this encounter Progress Notes * Michelle Osuna, HR REPRESENTATIVE - 12/29/2024 4:15 PM EST Images from the original note were not included. Gynecologic Annual Exam Note Gynecologic Exam (Annual) Subjective HPI Carmelina Bello is a 39 y.o. female who presents for annual well woman exam as a established patient. There were no changes to her medical or surgical history since her last visit.. Patient's last menstrual period was 12/20/2024 (exact date). Her periods occur every 28, lasting 3 days. The flow is moderate. She denies dysmenorrhea. Marital Status: . She is sexually active. She has nothad new partners.. STD testing recommendations have been explained to the patient and she does not desire STD testing. The patient would like to discuss the following complaints today: She would like to get refills on her Cryselle today. 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 Results: negative. HPV: negative. Last Completed Pap Smear Upcoming PAP SMEAR (Every 3 Years) Next due on 11/19/2026 11/20/2023 LIQUID-BASED PAP SMEAR WITH HPV GENOTYPING REGARDLESS OF INTERPRETATION ([facility]) 02/08/2022 LIQUID-BASED PAP SMEAR, [facility] ([facility]) 10/20/2020 SCANNED - PAP SMEAR History of abnormal Pap smear: no Gardasil status:unsure if she received the vaccine Family history of uterine, colon, breast, or ovarian cancer: yes - MGM breast cancer,Paternal Unclecolon cancer. Performs monthly Self-Breast Exam: yes Exercises Regularly:no Feelings of Anxiety or Depression: no Tobacco Usage?: No Current Outpatient Medications: escitalopram (Lexapro) 20 MG tablet, Take 1 tablet by mouth Daily., Disp: 30 tablet, Rfl: 12 losartan (COZAAR) 100 MG tablet, Take 1 tablet by mouth Daily., Disp: , Rfl: norgestrel-ethinyl estradiol (Cryselle-28) 0.3-30 MG-MCG per tablet, Take 1 tablet by mouth Daily.,Disp: 28 tablet, Rfl: 0 Patient is requesting refills of Cryselle. OB History 2 Para 2 Term 2 AB Living 2 SAB IAB Ectopic Molar Multiple 0 Live Births 2 Health Maintenance Topic Date Due TDAP/TD VACCINES (1 - Tdap) Never done ANNUAL PHYSICAL Never done INFLUENZA VACCINE 09/25/2024 Annual Gynecologic Pelvic and Breast Exam 11/20/2024 PAP SMEAR 11/19/2026 HEPATITIS C SCREENING Completed Pneumococcal Vaccine 0-49 Aged Out Past Medical History: Diagnosis Date Anxiety Gastritis Gestational hypertension gestational hypertension with first Migraine OTHER THAN FIRST Past Surgical History: Procedure Laterality Date APPENDECTOMY 2002 WISDOM TOOTH EXTRACTION The additional following portions of the patient's history were reviewed and updated as appropriate: allergies, current medications, past family history, past medical history, past social history, past surgical history, and problem list. Review of Systems Constitutional: Negative. HENT: Negative. Eyes: Negative. Respiratory: Negative. Cardiovascular: Negative. Gastrointestinal: Negative. Endocrine: Negative. Genitourinary: Negative. Musculoskeletal: Negative. Skin: Negative. Allergic/Immunologic: Negative. Neurological: Negative. Hematological: Negative. Psychiatric/Behavioral: Negative. I have reviewed and agree with the HPI, ROS, and historical information as entered above. Michelle Osuna, HR REPRESENTATIVE Objective BP 136/86 Ht 185.4 cm (73 ) Wt 116 kg (256 lb 9.6 oz) LMP 12/20/2024 (Exact Date) BMI 33.85kg/m?? Physical Exam Vitals and nursing note reviewed. Exam conducted with a valve setter present. Constitutional: General: She is not in acute distress. Appearance: Normal appearance. She is well-developed. She is obese. She is not ill-appearing. Pulmonary: Effort: Pulmonary effort is normal. No respiratory distress or retractions. Chest: Chest wall: No mass. Breasts: Right: Normal. No mass, nipple discharge, skin change or tenderness. Left: Normal. No mass, nipple discharge, skin change or tenderness. Abdominal: General: There is no distension. Palpations: Abdomen is soft. Abdomen is not rigid. There is no mass. Tenderness: There is no abdominal tenderness. There is no guarding or rebound. Hernia: No hernia is present. There is no hernia in the left inguinal area. Genitourinary: General: Normal vulva. Labia: Right: No rash, tenderness or lesion. Left: No rash, tenderness or lesion. Vagina: Normal. No vaginal discharge or lesions. Cervix: Normal. Uterus: Normal. Not enlarged, not fixed and not tender. Adnexa: Right adnexa normal and left adnexa normal. Right: No mass or tenderness. Left: No mass or tenderness. Rectum: No external hemorrhoid. Skin: General: Skin is warm and dry. Neurological: Mental Status: She is alert and oriented to person, place, and time. Psychiatric: Mood and Affect: Mood normal. Behavior: Behavior normal. 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 Reviewed pap guidelines. Reviewed risks/benefits of hormonal contraception after age 35, including possible increased risk of breast cancer, heart disease, blood clots and strokes. Patient strongly desires to stay on hormonal contraception. Reviewed monthly self breast exams. Instructed to call with lumps, pain, or breast discharge. Reviewed exercise as a preventative health measures. Reccommended Flu Vaccine in Fall of each year. RTC in 1 year or PRN with problems Return in about 1 year (around 12/29/2025) for Annual physical. Michelle Osuna APRN 12/29/2024 documented in this encounter Plan of Treatment Not on file documented as of this encounter Visit Diagnoses Diagnosis Women's annual routine gynecological examination- Primary Encounter for surveillance of contraceptive pills Obesity (BMI 30-39.9) documented in this encounter Care Teams Design Draftsman Relationship Specialty Start Date End Date Latesha Colon APRN [address] [place] [id number] PCP - General Internal Medicine 02/28/23 documented as of this encounter
--- OUTSIDE RECORDS SUMMARY | 2025-02-23 10:44 | XMS_ITS | Encounter Summary ---
Author Organization [facility] Address [address] [place] [address] Care Team Providers Care Weight And Balance Control Agent Name Role Phone Latesha Colon APRN Primary Care Provider Encounter Details Date Type Department Care Team (Latest Contact Info) Description 12/29/2024 Travel Social History Tobacco Use Types Packs/Day Years Used Date Smoking Tobacco: Never Smokeless Tobacco: Never Alcohol Use Standard Drinks/Week Comments Yes 0 (1 standard drink = 0.6 oz pur e alcohol) Socially [place] Depression Scale Answer Date Recorded [place] Depression Scale Total 1 08/31/2019 The thought of harming myself has occurred to me . Never 08/31/2019 Comments No Sex and Gender Information Value Date Recorded Sex Assigned at Female 12/23/2024 11:14 AM EDT Legal Sex Female 10:19 AM EDT Gender Identity Not on file Sexual Orientation Straight 12/23/2024 11 :14 AM EDT documented as of this encounter Plan of Treatment Not on file documented as of this encounter Visit Diagnoses Not on filedocumented in this encounter Care Teams Weight And Balance Control Agent Relationship Specialty Start Date End Date Latesha Colon APRN [address] [place] [address] [address] [facility] [address] [place] [id number] PCP - General Internal Medicine 02/28/23 documented as of this encounter
--- OUTSIDE RECORDS SUMMARY | 2025-02-23 10:44 | XMS_ITS | Clinical Summary ---
Author Organization [facility] Address [address] [place] [address] Care Team Providers Care Reporting Process Consultant Name Role Phone Latesha Colon APRN Primary Care Provider [phone] Allergies Active Allergy Reactions Criticality Noted Date Comments Morphine And Codeine Other (See Comments) 10/17 Pt states I get really aggressive, combative. Medications losartan (COZAAR) 100 MG tablet Take 1 tablet by mouth Daily. Active escitalopram (Lexapro) 20 MG tablet Take 1 tablet by mouth Daily. 30 tablet 12 5 Active norgestrel-ethinyl estradiol (Cryselle-28) 0.3-30 MG-MCG per tabletIndications: Encounter for surveillance of contraceptive pills Take 1 tablet by mouth Daily. 84 tablet 3 5 Active Active Problems Problem Noted Date Diagnosed Date (spontaneous vaginal delivery) 08/31/2019 Resolved Problems Problem Noted Date Diagnosed Date Resolved Date Term 08/30/2019 08/31/2019 10/17/2017 08/31/2019 Encounters Date Type Department Care Team Description 01/18/2025 Refill [facility] [address] [place] [address] Latesha Colon APRN 12/29/2024 4:15 PM EST Office Visit [facility] [address] [facility] [address] [place] [address] Michelle Osuna APRN Women's annual routine gynecological examination (Primary Dx); Encounter for surveillance of contraceptive pills; Obesity (BMI 30-39.9) 12/29/2024 Travel 12/22/2024 Telephone [facility] [address] [place] [address] Lydia Andrea MD Med Refill 12/21/2024 Refill [facility] [address] [facility] [address] [place] [address] Marii Stark APRN Encounter for surveillance of contraceptive pills; Routine gynecological examination from Last 3 Months Family History Medical History Relation Name Comments Diabetes Father Lamberto Goodrich Prostate cancer Father Lamberto Goodrich Breast cancer Maternal Grandmother Kavya Akosua Diabetes Maternal Grandmother Kavya Akosua Colon cancer Maternal Uncle 1 Joo Akosua Colon cancer Maternal Uncle 2 Joo Akosua Breast cancer Other FAMILY HISTORY Diabetes Other FAMILY HISTORY Osteoporosis Other FAMILY HISTORY Thyroid disease Other FAMILY HISTORY Colon cancer Paternal Uncle Ovarian cancer Neg Hx Uterine cancer Neg Hx Relation Name Status Comments Father Lamberto Goodrich Alive Maternal Grandmother Kavya Akosua Alive Maternal Uncle 1 Joo Akosua Maternal Uncle 2 Joo Akosua Alive Other FAMILY HISTORY Paternal Uncle Social History Tobacco Use Types Packs/Day Years Used Date Smoking Tobacco: Never Smokeless Tobacco: Never Tobacco Cessation:Counseling Given: Not Answered Alcohol Use Standard Drinks/Week Comments Yes 0 (1 standard drink = 0.6 oz pur e alcohol) Socially [place] Depression Scale Answer Date Recorded [place] Depression Scale Total 1 08/31/2019 The thought of harming myself has occurred to me . Never 08/31/2019 Comments No Sex and Gender Information Value Date Recorded Sex Assigned at Female 12/23/2024 11:14 AM EDT Legal Sex Female 10:19 AM EDT Gender Identity Not on file Sexual Orientation Straight 12/23/2024 11 :14 AM EDT Last Filed Vital Signs Vital Sign Reading Time Taken Comments Blood Pressure 136/86 12/29/2024 4:26 PM EST Pulse 82 09/01/2019 7:00 AM EDT Temperature 36.9 C (98.4 F) 09/01/2019 7:00 AM EDT Respiratory Rate 18 09/01/2019 7:00 AM EDT Oxygen Saturation - - Inhaled Oxygen Concentration - - Weight 116 kg (256 lb 9.6 oz) 12/29/2024 4:26 PM EST Height 185.4 cm (6' 1 ) 12/29/2024 4:26 PM EST Body Mass Index 33.85 12/29/2024 4:26 PM EST Plan of Treatment Health Maintenance Due Date Last Done Comments TDAP/TD VACCINES (1 - Tdap) 07/03/2006 ANNUAL PHYSICAL 10/17/2017 INFLUENZA VACCINE 09/25/2024 12/22/2018 Annual Gynecologic Pelvic an d Breast Exam 12/30/2025 12/29/2024, 10/20/2020 PAP SMEAR 11/19/2026 11/20/2023, 02/08/2022, 10/20/2020 HEPATITIS C SCREENING Completed 01/27/2019 Pneumococcal Vaccine 0-49 Aged Out No longer eligible based on patient's age to complete this topic Procedures Procedure Name Priority Date/Time Associated Diagnosis Comments LIQUID-BASED PAP SMEAR WITH HPV GENOTYPING REGARDLESS OF INTERPRETATION, [facility] (LEOBARDO,COR,MAD) Routine 11/20/2023 12:30 PM EDT Routine gynecological examination SCANNED - PAP SMEAR 10/20/2020 HEPATITIS C ANTIBODY Routine 01/27/2019 from Last 3 Months or Most Recently Relevant to Health Maintenance Results * LIQUID-BASED PAP SMEAR WITH HPV GENOTYPING REGARDLESS OF INTERPRETATION (LEOBARDO,COR,MAD) (11/20/2023 12:30 PM EDT) [facility] [address] [place] [address] or [phone] Crescencio Holt M.D., Senior Software Development Engineer PATIENT NAME LABORATORY NO[facility] [address] SUYAPA BELLO [id number] AGE SEX SSN CLIENT REF # [facility] [id number] F [id number] [address] REQUESTING Michelle [place]ENDING [place] [address] GHULAM LING DATE COLLECTED DATE RECEIVED DATE REPORTED 11/20/2023 11/20/2023 11/28/2023 ThinPrep Pap with Cytyc Imaging DIAGNOSIS: Negative for intraepithelial lesion or malignancy Multiple factors can influence accuracy of Pap tests; therefore, screening at regular intervals is necessary for early cancer detection. SPECIMEN ADEQUACY: SATISFACTORY FOR EVALUATION Transformation zone is present. SOURCE OF SPECIMEN: CERVICAL/ENDOCERV ICAL SLIDES: 1 CLINICAL HISTORY: Last pap 02/08/22 negative -HPV Routine gynecological examination control pills HPV HR-HPV POOL: Negative The Aptima HPV assay is an in vitro nucleic acid amplification test for the qualitative detection of E6/E7 viral messenger RNA from 14 high risk types of HPV in cervical specimens. The high risk HPV types detected include: 16, 18, 31, 33, 35, 39, 45, 51, 52, 56, 58, 59, 66, 68 TAPE CUTTING MACHINE OPERATOR: YESSY HALL (ASCP) CPT CODES: 10981, [id number] 11/28/2023 9:26 AM EDT [facility] ThinPrep Vial Cervix uteri structure / Unknown Collection / Unknown 11/20/2023 12:30 PM EDT 11/20/2023 12:31 PM EDT Ghulam Ling LIVING SUPERVISOR PATHOLOGY/CYTOLOGY O [facility] Final Result [facility]
[address] [place] [address], * SCANNED - PAP SMEAR (10/20/2020) Lydia Andrea MD CHART REVIEW TABS Final Resu lt * Hepatitis C Antibody (01/27/2019) External Hepatitis C Ab negative Blood Historical Provider LAB BLOOD ORDERABLES Tatiana l Result from Last 3 Months or Most Recently Relevant to Health Maintenance Insurance [facility] [employer] EMPLOYEE Advance Directives * CPR (Attempt to Resuscitate) (Latest Code Status on File) Date Activated Date Inactivated Comments 08/31/2019 4:51 PM 09/01/2019 7:33 PM Question Answer Comments Code Status (Patient has no pulse and is not breathing): CPR (Attempt to Resuscitate) Medical Interventions (Patie nt has pulse or is breathing): Full * CPR (Attempt to Resuscitate) Date Activated Date Inactivated Comments 08/30/2019 11:25 PM 08/31/2019 4:51 PM Question Answer Comments Code Status (Patient has no pulse and is not breathing): CPR (Attempt to Resuscitate) Medical Interventions (Patie nt has pulse or is breathing): Full * CPR (Attempt to Resuscitate) Date Activated Date Inactivated Comments 10/18/2017 9:32 PM 10/20/2017 2:40 PM Question Answer Comments Code Status (Patient has no pulse and is not breathing): CPR (Attempt to Resuscitate) Medical Interventions (Patie nt has pulse or is breathing): Full * CPR (Attempt to Resuscitate) Date Activated Date Inactivated Comments 10/17/2017 10:20 PM 10/18/2017 9:32 PM Question Answer Comments Code Status (Patient has no pulse and is not breathing): CPR (Attempt to Resuscitate) Medical Interventions (Patie nt has pulse or is breathing): Full Care Teams Reporting Process Consultant Relationship Specialty Start Date End Date Latesha Colon APRN [facility] [address] [facility] [address] [place] [address] PCP - General Internal Medicine 02/28/23
--- OUTSIDE RECORDS SUMMARY | 2025-02-23 10:44 | XMS_ITS | Clinical Summary ---
Author Organization Healthcare Address [address] [place] [address] Care Team Providers Care Dog Obedience Instructor Name Role Phone ColonLatesha bella Blanca MATT Primary Care Provider [phone] Social History Tobacco Use Types Packs/Day Years Used Date Smoking Tobacco: Never Assessed Comments Unknown Sex and Gender Information Value Date Recorded Sex Assigned at Not on file Legal Sex Female 7:09 PM EDT Gender Identity Not on file Sexual Orientation Not on file Plan of Treatment Health Maintenance Due Date Last Done Comments [facility]-Depression Screening 1985 [facility]-/Child/Adol SDOH Screenings 1985 [facility]-Varicella Vaccines (1 of 2 - 13+ 2-dose series) 07/03/2000 [facility]- SDOH Screenings 07/03/2005 [facility]-Adult SDOH Screenings 07/03/2005 [facility]-DTaP,Tdap,and Td Vaccines (1 - Tdap) 07/03/2006 [facility]-Hepatitis B Vaccines (1 of 3 - 19+ 3-dose series) 07/03/2006 [facility]-Pap Smear 07/03/2008 [facility]-Cervical Cancer Screening 07/03/2017 [facility]-HPV/Cotest 07/03/2017 [id number] Vaccine ( - 2024- season) 2024 01/25/2021, 04/15/2020, 03/16/2020 [facility]-Influenza Vaccine (#1) 2024 12/22/2018 [facility]-Zoster Vaccines (1 of 2) 07/03/2037 HPV Vaccines (No Doses Required) Completed [facility]-HIB Vaccines Aged Out No longer e ligible based on patient's age to complete this topic [facility]-Hepatitis A Vaccines Aged Out No longer eligible based on patient's age to complete this topic [facility]-IPV Vaccines Aged Out No longer e ligible based on patient's age to complete this topic [facility]-Pneumococcal Vaccine: Pediatrics (0 to 5 Years) and At-Risk Patients (6 to 49 Years) Aged Out No longer eligible b ased on patient's age to complete this topic [facility]-Rotavirus Vaccines Aged Out No lo nger eligible based on patient's age to complete this topic Insurance [place] [id number] [place] Care Teams Dog Obedience Instructor Relationship Specialty Start Date End Date Latesha Colon APRN [address] [place] [address] PCP - General 02/25/22
--- OUTSIDE RECORDS SUMMARY | 2025-02-23 10:44 | XMS_ITS | Encounter Summary ---
Author Organization [facility] Address [address] [place] [address] Care Team Providers Care Pipe Fitter Supervisor Maintenance Name Role Phone Latesha Colon APRN Primary Care Provider [phone] Reason for Visit * Reason Onset Date Comments Med Refill 01/18/2025 Encounter Details Date Type Department Care Team (Late st Contact Info) Description 01/18/2025 Refill [facility] [address] [facility] [address] [place] [address] Latesha Colon APRN [address] [facility] Social History Tobacco Use Types Packs/Day Years Used Date Smoking Tobacco: Never Smokeless Tobacco: Never Alcohol Use Standard Drinks/Week Comments Yes 0 (1 standard drink = 0.6 oz pur e alcohol) Socially [place] Depression Scale Answer Date Recorded [place] Depression Scale Total 1 08/31/2019 The thought [...] on filedocumented in this encounter Care Teams Pipe Fitter Supervisor Maintenance Relationship Specialty Start Date End Date Latesha Colon APRN [address] [address] [place] [address] PCP - General Internal Medicine 02/28/23 documented as of this encounter
[2025-02-23 10:51] LABS: Hematocrit 39.6 % (37.0-47.0); Hemoglobin 13.3 g/dL (12.2-16.2); Immature Granulocytes % 0.2 %; Mean Corpuscular HGB Conc 33.6 g/dL (31.8-35.4); Mean Corpuscular Hemoglobin 31.4 pg (27.0-31.2); Mean Corpuscular Volume 93.6 fl (81-99); Nucleated Red Blood Cells % 0 %; Platelet Count 298 K/mm3 (142-424); Red Blood Count 4.23 M/mm3 (4.20-5.40); Red Cell Distribution Width-SD 43.8 fL; White Blood Count 5.1 K/mm3 (4.8-10.8)
[2025-02-23 11:21] LABS: Albumin Level 4.5 g/dl (3.5-5.0); Chloride 108 mmol/L (98-107); Potassium 4.5 mmoL/L (3.5-5.1); Sodium 139 mmol/L (136-145)
[2025-02-23 11:23] LABS: Anion Gap 12.5 mEq/L (5-15); Bilirubin,Unconjugated 0.5 mg/dL (0.0-1.1); Blood Urea Nitrogen 15 mg/dl (7-17); Carbon Dioxide 23 mmol/L (22.0-30.0); Creatinine,Serum 1.00 mg/dl (0.52-1.04); Estimated Glomerular Filt Rate 62 ml/min (>60); GFR (African American) 75 ML/MIN (>60)
[2025-02-23 11:24] LABS: Alanine Aminotransferase 17 U/L (12-78); Alkaline Phosphatase 51 U/L (38-126); Aspartate Amino Transferase 25 U/L (14-36); Bilirubin,Direct 0.0 mg/dl (0.0-0.4); Bilirubin,Indirect 0.5 mg/dL (0.0-0.9); Bilirubin,Total 0.5 mg/dl (0.2-1.3); Calcium 10.2 mg/dl (8.4-10.2); Cholesterol 241 mg/dl (140-200); Glucose 99 mg/dl (74-100); HDL Cholesterol 52 mg/dl (40-60); Magnesium 2.3 mg/dl (1.6-2.3); Total Protein,Serum 6.6 g/dl (6.3-8.2); Triglycerides 372 mg/dl (30-150)
[2025-02-23 11:40] LABS: Free T4 (Free Thyroxine) 0.84 ng/dl (0.78-2.19)
[2025-02-23 11:54] LABS: Thyroid Stimulating Hormone 2.83 uIU/mL (0.465-4.68)
== END 2025-02-23 23:59 | disposition home or self-care (01) ==
LOC: LAB 10:15
PROVIDERS: PCP Nurse Practitioner Family; Visit Provider Nurse Practitioner
DX: E78.1 Pure hyperglyceridemia (principal); I10 Essential (primary) hypertension; E78.5 Hyperlipidemia, unspecified
CPT/HCPCS: 36415; 80048; 80061; 80076; 83735; 84439; 84443; 85025